=== PATIENT | female | born 1950 | race Caucasian/White ===

== ENCOUNTER → 2017-09-12 13:13 | Outpatient (CLI) | payer MEDICARE, BC | END | disposition home or self-care (01) | LOC: D.MAMMO 11:00 | DX: Z12.31 Encounter for screening mammogram for malignant neoplasm of breast (principal) ==

== ENCOUNTER → 2017-11-16 11:00 | Outpatient (CLI) | payer MEDICARE, BC | LOC: D.MAMMO 11:00 | DX: R92.8 Other abnormal and inconclusive findings on diagnostic imaging of breast (principal) ==

== ENCOUNTER → 2017-11-18 10:00 | Outpatient (CLI) | payer MEDICARE, BC | END | disposition home or self-care (01) | LOC: D.MRI 10:00 | DX: S83.282A Other tear of lateral meniscus, current injury, left knee, initial encounter (principal) ==

== ENCOUNTER → 2018-09-01 10:03 | Outpatient (CLI) | payer MEDICARE, BC | END | disposition home or self-care (01) | LOC: D.MRI 10:03 | DX: M25.561 Pain in right knee (principal) ==

== ENCOUNTER 2020-03-27 13:45 | Outpatient (CLI) | payer MEDICARE, BC | END 2020-03-27 14:45 | disposition home or self-care (01) | LOC: D.MAMMO 13:45 | PROVIDERS: ATTEND Family Medicine | DX: Z12.31 Encounter for screening mammogram for malignant neoplasm of breast (principal) ==